=== PATIENT | female | born 1945 | race American Indian/Alaskan Native ===

== ENCOUNTER 2017-08-11 06:54 | Day surgery (SDC) | payer MEDICARE ==
[2017-08-11] MEDS ORDERED: NACL 0.9% 500 ML 500 ML IV SCH (08:00)
[2017-08-11 08:29] LABS: Basophils % (Auto) 1.3 % (0.0-1.8); Eosinophils % (Auto) 3.2 % (0.0-4.3); Hematocrit 44.3 % (30.3-42.9); Hemoglobin 14.9 gm/dl (10.1-14.3); Mean Corpuscular HGB Conc 34 % (30-34); Mean Corpuscular Hemoglobin 32 pg (28-32); Mean Corpuscular Volume 96 fl (79-97); Platelet Count 145 K/mm3 (140-440); Red Blood Count 4.61 M/mm3 (3.65-5.03); Red Cell Distribution Width 15.3 % (13.2-15.2); White Blood Count 4.1 K/mm3 (4.5-11.0)
[2017-08-11 08:37] LABS: INR 0.88 (0.87-1.13)
[2017-08-11 08:43] LABS: Anion Gap 14 mmol/L; BUN/Creatinine Ratio 16; Blood Urea Nitrogen 11 mg/dL (7-17); Calcium 9.2 mg/dL (8.4-10.2); Carbon Dioxide 25 mmol/L (22-30); Chloride 108.4 mmol/L (98-107); Glucose 100 mg/dL (65-100); Potassium 4.2 mmol/L (3.6-5.0); Sodium 143 mmol/L (137-145)
[2017-08-11] MEDS ORDERED: HEPARIN 10,000 UNITS/10 ML ONE (09:54)
[2017-08-11] MEDS ORDERED: XYLOCAINE 2% INFILTRATI ONE ×2 (09:54→10:50)
[2017-08-11] MEDS ORDERED: HEPARIN/NS 5000 UNIT/500ML(CATH LAB) 1,000 ML IR ONE (09:54)
[2017-08-11] MEDS ORDERED: CALAN ONE (09:54)
[2017-08-11] MEDS ORDERED: NITROGLYCERIN SYRINGE 3 ML ONE (09:54)
[2017-08-11] MEDS: SUBLIMAZE ONE ×2 (10:29→10:35)
[2017-08-11] MEDS: VERSED ONE ×2 (10:29→10:48)
[2017-08-11] MEDS ORDERED: ULTRAM PO PRN (11:48)
--- NOTE | 2017-08-11 11:52 | Discharge Summary ---
Short Stay Discharge Plan Activity: advance as tolerated Diet: low fat, low cholesterol, low salt Wound: other (Post cardiac cath instructions.) Follow up with: ADELIA HORVATH MD [Primary Care Provider] - 7 Days JOSIE TURNER MD [Staff Physician] - 7 Days
--- NOTE | 2017-08-11 12:36 | Cardiac Catherization Report ---
HISTORY: The patient is a 72-year-old female known to Dr. Capellan, who had findings suggestive of significant coronary artery disease, so a coronary angiography was recommended. PROCEDURE: Left heart catheterization, ventriculography, and coronary angiography via the right femoral artery using 5-Wolof Live catheters and pigtail catheter. The right radial approach was attempted but the vessels were too tortuous. COMPLICATIONS: None. HEMODYNAMICS: Central aortic pressure 164/89, left ventricular pressure 161/19 with an EDP of 28. PREPROCEDURE DIAGNOSIS: Coronary artery disease. POSTPROCEDURE DIAGNOSES: Diffuse distal coronary artery disease. SEDATION: Intravenous Versed and fentanyl. ESTIMATED BLOOD LOSS: 10-20 mL. TISSUE SAMPLES: None. ANGIOGRAPHIC RESULTS: 1. Left ventriculogram reveals a normal sized left ventricle with good systolic function. The apex is slightly dyskinetic. The other segments are function well. 2. Right coronary artery: This is the dominant vessel and it is diffusely irregular. The proximal, mid and early distal portions are slightly ectatic. The RV marginal branch contains an ostial 70% stenosis. The PDA branch is diffusely diseased with a proximal 50%, a mid 75%, and a distal 60% stenosis. 3. Left coronary artery: This vessel was diffusely irregular with mild calcification. The left main is free of remarkable disease. The circumflex is irregular and a distal posterolateral branch, which is small in caliber and has an ostial 60% stenosis. The LAD contains a proximal and mid segment with ectasia. The first diagonal branch is small. The second diagonal branch is small with an 80% stenosis. The third diagonal branch is a medium caliber with a mid 70% stenosis. The distal LAD is diffusely diseased with 2 serial 60% lesions for and after the third diagonal branch. The distal vessel and far distal vessel is diffusely narrowed with four 90% lesions in series. FINAL IMPRESSION: Diffuse distal coronary artery disease with good left ventricular function. The apex is dyskinetic. None of the vessels appeared to be amenable to percutaneous coronary intervention. PLAN: Aggressive medical therapy. CAD risk factor modification, discourage smoking. Office followup within 7 days. JOB# [id number] JDS/NTS
[2017-08-11 16:18] VITALS: BP 165/90
== END 2017-08-11 16:00 | disposition home or self-care (01) ==
LOC: CATHLABREC 06:54
PROVIDERS: ATTEND Internal Medicine Cardiovascular Disease
DX: I25.10 Atherosclerotic heart disease of native coronary artery without angina pectoris (principal); I11.0 Hypertensive heart disease with heart failure; I50.9 Heart failure, unspecified; I34.0 Nonrheumatic mitral (valve) insufficiency; I36.1 Nonrheumatic tricuspid (valve) insufficiency; K21.9 Gastro-esophageal reflux disease without esophagitis; E66.01 Morbid (severe) obesity due to excess calories; E78.00 Pure hypercholesterolemia, unspecified; F17.290 Nicotine dependence, other tobacco product, uncomplicated; Z68.36 Body mass index [BMI] 36.0-36.9, adult; Z79.82 Long term (current) use of aspirin; Z79.899 Other long term (current) drug therapy
CPT/HCPCS: 36415; 80048; 85025; 85610; 85730; 93005; 93010; 93458; 99156; 99157; C1894; J1644; J2250; J3010; J7040; Q9967

== ENCOUNTER 2021-03-12 13:03 | Emergency (ER) | payer MEDICARE ==
[2021-03-12 13:11] VITALS: BP 175/115
--- NOTE | 2021-03-12 15:11 | Emergency Department Report ---
Chief Complaint: High BP Stated Complaint: HBP 218/143 Time Seen by Provider: 03/12/21 15:05 - HPI History of Present Illness: 75-year-old female patient with history of hypertension presents to the emergency department for evaluation of an elevated blood pressure reading earlier this morning. Patient states she went to urgent care for evaluation of urinary incontinence for the last 3 months. Her blood pressure was found to be elevated and she was sent to the emergency department for further evaluation. Patient takes multiple blood pressure medications and has been compliant with her antihypertensive medication regimen. Patient took her medications as directed prior to her doctor's appointment. Patient is asymptomatic without further complaints or concerns. Denies headache, vision changes, chest pain, shortness of breath, palpitations, syncope, paresthesias, numbness, weakness. Denies all other complaints at this time. - ROS Review of Systems: GENERAL: Negative for fever. CARDIOVASCULAR: Negative for chest pain. PULMONARY: Negative for shortness of breath. GASTROINTESTINAL: Negative for abdominal pain. MUSCULOSKELETAL: Negative for back pain. NEUROLOGICAL: Negative for headache. INTEGUMENTARY: Negative for rash. - Exam Vital Signs: Vital Signs 03/12/21 13:11 Temperature 98.5 F Pulse Rate 95 H Respiratory 18 Rate Blood Pressure 175/115 O2 Sat by Pulse 95 Oximetry Physical Exam: General: Awake and alert. No acute distress. Head: Atraumatic, normocephalic. Eyes: EOMI. Pupils are equal and round. Normal sclera and conjunctiva. ENT: Oral mucosa is moist. Normal pharyngeal exam. Neck: Supple. No lymphadenopathy. Pulmonary: No respiratory distress. Clear to auscultation bilaterally. Cardiac: Regular rate and rhythm. Pulses are palpable and equal bilaterally. No lower extremity cyanosis or edema. Skin: Warm and dry. No rashes. Abdomen: Soft, non-tender, non-protuberant. No guarding, rigidity, or rebound. Bowel sounds are normal. No organomegaly or masses noted. Back: Normal alignment. No CVA tenderness. Extremities: Symmetrical. Full range of motion intact. Neurological: Alert and oriented, appropriately interactive, no focal deficits. Psych: Cooperative. Appropriate mood and affect. Speech is evenly metered. Thoughts are logically construed. MSE screening note: Focused history and physical exam performed. Due to findings the following was ordered: ED Medical Decision Making - Medical Decision Making Patient was sent to the emergency department by a local urgent care facility for evaluation of an elevated blood pressure reading. Her systolic blood pressure was reportedly 218 mmHg. Repeat blood pressure in the emergency department significantly improved without intervention. Patient has a prior history of hypertension. She is asymptomatic. Patient specifically denies chest pain, shortness of breath, palpitations, syncope, headache, vision changes. Neurological exam is nonfocal and remainder of vital signs are stable. No clinical indication for further diagnostic work-up and/or emergent administration of antihypertensive therapy at this time per ACEP asymptomatic hypertension guidelines. Patient was encouraged to follow-up with primary care provider for blood pressure recheck. Lifestyle modifications recommended. Strict return precautions provided. Case discussed with Dr. Appiah, attending emergency physician, who agrees with plan of care. ED Disposition for MSE Clinical Impression: Asymptomatic hypertension Disposition: - TO HOME OR SELFCARE Is pt being admited?: No Does the pt Need Aspirin: No Condition: Stable Instructions: Hypertension (ED), Managing Your Hypertension Additional Instructions: Continue medications as previously prescribed. Please quit smoking. Reduce your dietary sodium intake. Exercise daily. Follow-up with your primary care provider this week. Call today to schedule an appointment. Return to the emergency department immediately for new or worsening symptoms. Referrals: [facility] [Provider Group] - 3-5 Days Time of Disposition: 15:12
== END 2021-03-12 15:38 | disposition home or self-care (01) ==
LOC: ED 13:03
DX: I10 Essential (primary) hypertension (principal); M19.91 Primary osteoarthritis, unspecified site; I25.2 Old myocardial infarction; Z88.8 Allergy status to other drugs, medicaments and biological substances
CPT/HCPCS: 99282